=== PATIENT | female | born 1950 | race American Indian/Alaskan Native ===

== ENCOUNTER 2016-07-28 10:43 | Inpatient (IN) | payer MEDICARE ==
[2016-07-28 13:30] LABS: Basophils % (Auto) 0.8 % (0.0-1.8); Eosinophils % (Auto) 0.6 % (0.0-4.3); Mean Corpuscular HGB Conc 34 % (30-34); Mean Corpuscular Hemoglobin 30 pg (28-32); Mean Corpuscular Volume 88 fl (79-97); Platelet Count 265 K/mm3 (140-440); Red Blood Count 4.31 M/mm3 (3.65-5.03); Red Cell Distribution Width 15.1 % (13.2-15.2); White Blood Count 8.4 K/mm3 (4.5-11.0)
[2016-07-28 13:38] LABS: INR 0.95 (0.87-1.13)
[2016-07-28 13:39] LABS: Partial Thromboplastin Time 24.5 Sec. (24.2-36.6)
[2016-07-28 13:45] LABS: Creatine Kinase MB 1.1 ng/mL (0.0-4.0)
[2016-07-28 13:48] LABS: Alanine Aminotransferase 25 units/L (7-56); Albumin/Globulin Ratio 1.1 %; Alkaline Phosphatase 72 units/L (35-129); Anion Gap 23 mmol/L; BUN/Creatinine Ratio 21.66; Bilirubin,Total 0.8 mg/dL (0.1-1.2); Blood Urea Nitrogen 13 mg/dL (7-17); Carbon Dioxide 21 mmol/L (22-30); Chloride 103.6 mmol/L (98-107); Creatine Kinase 55 units/L (30-135); Glucose 113 mg/dL (65-100); Potassium 3.4 mmol/L (3.6-5.0); Sodium 144 mmol/L (137-145); Total Protein 7.5 g/dL (6.3-8.2)
--- NOTE | 2016-07-28 14:03 | Emergency Department Report ---
HPI - General Chief Complaint: Dizziness Time Seen by Provider: 07/28/16 12:44 - HPI HPI: Room 25 The patient is a 66-year-old female presenting with a chief complaint of dizziness and weakness. The patient states 6 days ago she developed dizziness, weakness, palpitations and shortness of breath whenever she moved about. The patient states 2 days ago she developed intermittent substernal chest pain that was dull in nature. Patient does admit to shortness of breath, nausea and diaphoresis but denies vomiting. The patient states chest pain is been intermittent and is not present currently. The patient states she has normal stress test in 2016 but is uncertain if she's ever had a cardiac catheterization Location: Chest, see above Duration: Intermittent 6 days Quality: Dull Severity: Currently 0/10 Modifying factors: [see above] Context: [see above] Mode of transportation: [not driving] ED Past Medical Hx - Past Medical History Hx Hypertension: Yes (x 10 years) Hx CVA: Yes Hx Heart Attack/AMI: Yes Hx GERD: Yes Hx Arthritis: Yes (uses cane and wheelchair) Hx Headaches / Migraines: Yes - Surgical History Past Surgical History?: Yes Additional Surgical History: Hysterectomy - Family History Family history: no significant - Social History Smoking Status: Never Smoker Substance Use Type: None - Medications Home Medications: Home Medications Medication Instructions Recorded Confirmed Last Taken Type Amlodipine Besylate [Amlodipine 5 mg PO DAILY 02/12/16 04/19/16 04/27/16 04:30 History Besylate] Diphenhydramine HCl [Benadryl GEL] 118 ml TP PRN PRN 02/12/16 04/19/16 Unknown History Fluticasone [Flonase] 2 spray NS QDAY 02/12/16 04/19/16 04/26/16 20:00 History Gabapentin [Gabapentin] 200 mg PO HS 02/12/16 04/19/16 04/26/16 20:00 History Gabapentin [Gabapentin] 300 mg PO QAM 02/12/16 04/19/16 04/27/16 04:30 History HYDROcodone/ACETAMINOPHEN 1 tab PO PRN PRN 02/12/16 04/19/16 04/27/16 04:30 History [Hydrocodon-Acetaminophen 5-325] Lisinopril/Hydrochlorothiazide 1 tab PO DAILY 02/12/16 04/19/16 04/27/16 04:30 History [Lisinopril-Hctz 20-25 mg Tab] Loratadine 10 mg PO DAILY 02/12/16 04/19/16 04/26/16 20:00 History Meloxicam [Meloxicam] 15 mg PO PRN PRN 02/12/16 04/27/16 04/25/16 History Omeprazole (Nf) [PriLOSEC (Nf)] 40 mg PO DAILY 02/12/16 04/27/16 2 Months Ago History Simvastatin [Zocor TAB] 40 mg PO QHS 02/12/16 04/19/16 04/26/16 20:00 History Sucralfate [Carafate] 1 gm PO ACHS 02/12/16 04/19/16 04/26/16 20:00 History Docusate Sodium [Colace] 100 mg PO BID PRN #60 capsule 04/28/16 Unknown Rx Ibuprofen [Motrin] 800 mg PO Q8HR PRN #30 tablet 04/28/16 Unknown Rx Oxycodone HCl/Acetaminophen 1 each PO Q6H PRN #40 tablet 04/28/16 Unknown Rx [Percocet 7.5/325 mg] ED Review of Systems ROS: Stated complaint: DIZZINESS/FATIGUE Other details as noted in HPI Comment: All other systems reviewed and negative Constitutional: weakness Eyes: denies: eye pain, eye discharge, vision change ENT: denies: ear pain, throat pain Respiratory: shortness of breath Cardiovascular: chest pain, palpitations Endocrine: no symptoms reported Gastrointestinal: nausea. denies: vomiting Genitourinary: denies: urgency, dysuria, discharge Musculoskeletal: denies: back pain, joint swelling, arthralgia Skin: denies: rash, lesions Neurological: denies: headache, weakness, paresthesias Psychiatric: denies: anxiety, depression Hematological/Lymphatic: denies: easy bleeding, easy bruising Physical Exam - Physical Exam Vital Signs: Vital Signs 07/28/16 07/28/16 07/28/16 10:52 11:00 11:01 Temperature 97.6 F Pulse Rate 52 L Respiratory 18 Rate Blood Pressure 138/51 157/52 Blood Pressure [Left] O2 Sat by Pulse 100 100 100 Oximetry 07/28/16 07/28/16 07/28/16 11:09 11:21 12:00 Temperature 97.6 F Pulse Rate 52 L 96 H Respiratory 18 16 40 H Rate Blood Pressure 125/77 Blood Pressure 157/52 [Left] O2 Sat by Pulse 100 100 100 Oximetry 07/28/16 13:00 Temperature Pulse Rate 97 H Respiratory 46 H Rate Blood Pressure 142/52 Blood Pressure [Left] O2 Sat by Pulse 100 Oximetry Physical Exam: GENERAL: The patient is well-developed well-nourished female lying on stretcher not appearing to be in acute distress. [] HEENT: Normocephalic. Atraumatic. Extraocular motions are intact. Patient has moist mucous membranes. NECK: Supple. No meningitic signs are noted. There is no adenopathy noted. CHEST/LUNGS: Clear to auscultation. There is no respiratory distress noted. HEART/CARDIOVASCULAR: Regular. There is no tachycardia. There is no gallop rub or murmur. ABDOMEN: Abdomen is soft, nontender. Patient has normal bowel sounds. There is no abdominal distention. SKIN: There is no rash. There is no edema. There is no diaphoresis. NEURO: The patient is awake, alert, and oriented. The patient is cooperative. The patient has no focal neurologic deficits. The patient has normal speech. Cranial nerves II through XII grossly intact, no drift MUSCULOSKELETAL: There is no evidence of acute injury. ED Course Vital Signs 07/28/16 07/28/16 07/28/16 10:52 11:00 11:01 Temperature 97.6 F Pulse Rate 52 L Respiratory 18 Rate Blood Pressure 138/51 157/52 Blood Pressure [Left] O2 Sat by Pulse 100 100 100 Oximetry 07/28/16 07/28/16 07/28/16 11:09 11:21 12:00 Temperature 97.6 F Pulse Rate 52 L 96 H Respiratory 18 16 40 H Rate Blood Pressure 125/77 Blood Pressure 157/52 [Left] O2 Sat by Pulse 100 100 100 Oximetry 07/28/16 13:00 Temperature Pulse Rate 97 H Respiratory 46 H Rate Blood Pressure 142/52 Blood Pressure [Left] O2 Sat by Pulse 100 Oximetry ED Medical Decision Making - Lab Data Result diagrams: 07/28/16 13:02 07/28/16 13:02 Laboratory Tests 07/28/16 07/28/16 07/28/16 13:02 13:02 13:02 WBC 8.4 RBC 4.31 Hgb 13.0 Hct 38.0 MCV 88 MCH 30 MCHC 34 RDW 15.1 Plt Count 265 Lymph % (Auto) 32.2 [place] % (Auto) 6.7 Eos % (Auto) 0.6 Baso % (Auto) 0.8 Lymph # 2.7 [place] # 0.6 Eos # 0.0 Baso # 0.1 Seg Neutrophils % 59.7 Seg Neutrophils # 5.0 PT 12.6 INR 0.95 APTT 24.5 Sodium 144 Potassium 3.4 L Chloride 103.6 Carbon Dioxide 21 L Anion Gap 23 BUN 13 Creatinine 0.6 L Estimated GFR > 60 BUN/Creatinine Ratio 21.66 Glucose 113 H Calcium 10.0 Total Bilirubin 0.8 AST 24 ALT 25 Alkaline Phosphatase 72 Total Creatine Kinase 55 CK-MB (CK-2) 1.1 CK-MB (CK-2) Rel Index 2.0 Troponin T < 0.010 Total Protein 7.5 Albumin 4.0 Albumin/Globulin Ratio 1.1 TSH Free T4 Blood Type Antibody Screen 07/28/16 07/28/16 13:02 13:02 WBC RBC Hgb Hct MCV MCH MCHC RDW Plt Count Lymph % (Auto) [place] % (Auto) Eos % (Auto) Baso % (Auto) Lymph # [place] # Eos # Baso # Seg Neutrophils % Seg Neutrophils # PT INR APTT Sodium Potassium Chloride Carbon Dioxide Anion Gap BUN Creatinine Estimated GFR BUN/Creatinine Ratio Glucose Calcium Total Bilirubin AST ALT Alkaline Phosphatase Total Creatine Kinase CK-MB (CK-2) CK-MB (CK-2) Rel Index Troponin T Total Protein Albumin Albumin/Globulin Ratio TSH 3.390 Free T4 1.20 Blood Type O POSITIVE Antibody Screen Negative - EKG Data -: EKG Interpreted by Me EKG shows normal: sinus rhythm Rate: normal - EKG Data When compared to previous EKG there are: previous EKG unavailable Interpretation: other (quadrigeminy) - Radiology Data Radiology results: image reviewed (chest x-ray) interpreted by me: Chest x-ray-no focal infiltrates, no pneumothorax - Differential Diagnosis ACS, dysrhythmia, chest pain Critical care attestation.: If time is entered above; I have spent that time in minutes in the direct care of this critically ill patient, excluding procedure time. ED Disposition Clinical Impression: Chest pain, Ventricular quadrigeminy Disposition: OP ADMITTED IP TO THIS HOSP Is pt being admited?: Yes Does the pt Need Aspirin: Yes Condition: Fair Instructions: Chest Pain (ED) Referrals: PRIMARY CARE, [Primary Care Provider] - 3-5 Days Time of Disposition: 14:04 (hospitalist paged)
[2016-07-28 14:04] LABS: Bilirubin,Urine NEG (Negative); Blood,Urine NEG (Negative); Ketones,Urine NEG (Negative); Leukocyte Esterase,Urine NEG (Negative); Mucus,Urine FEW /HPF; Nitrite,Urine NEG (Negative); Protein,Urine <15 mg/dL mg/dL (Negative); Urobilinogen,Urine < 2.0 mg/dL (<2.0); WBC,Urine < 1.0 /HPF (0.0-6.0)
[2016-07-28] MEDS ORDERED: ASPIRIN PO ONE (14:04)
--- NOTE | 2016-07-28 14:09 | XRay Report ---
AP CHEST: HISTORY: chest pain AP view of the chest demonstrates a normal mediastinal and cardiac contour with clear lungs and normal bony and soft tissue structures. IMPRESSION: Unremarkable AP chest.
[2016-07-28] MEDS ORDERED: ASPIRIN ONE (16:08)
[2016-07-28] MEDS ORDERED: MILK OF MAGNESIA PO PRN (18:34)
[2016-07-28] MEDS ORDERED: DILAUDID IV PRN (18:34)
[2016-07-28] MEDS ORDERED: DULCOLAX PR PRN (18:34)
[2016-07-28] MEDS ORDERED: TYLENOL PO PRN (18:34)
[2016-07-28] MEDS ORDERED: ZOFRAN IV PRN (18:34)
--- NOTE | 2016-07-28 18:34 | Event Note ---
Date: 07/28/16 See H/p in reports
[2016-07-28] MEDS ORDERED: SODIUM CHLORIDE FLUSH SYRINGE 10 ML IV PRN (18:37)
[2016-07-28] MEDS ORDERED: COLACE PO PRN (18:39)
[2016-07-28] MEDS ORDERED: OMEPRAZOLE 40 MG PO SCH (18:45)
[2016-07-28] MEDS ORDERED: D5/0.45NS 1,000 ML IV SCH (19:00)
[2016-07-28] MEDS: ZOCOR PO SCH (21:32)
[2016-07-28] MEDS: NEURONTIN PO SCH (21:33)
[2016-07-28] MEDS: PERCOCET 5/325 PO PRN (21:34)
[2016-07-28] MEDS: CARAFATE PO SCH (21:34)
[2016-07-28] MEDS: NORVASC PO SCH (21:35)
[2016-07-28 22:11] LABS: Creatine Kinase 48 units/L (30-135)
[2016-07-28 22:16] LABS: Creatine Kinase MB < 1.0 ng/mL (0.0-4.0)
--- NOTE | 2016-07-29 00:53 | Admit Criteria Form ---
Admission Criteria Documentation: CHEST PAIN Clinical Indications for Admission to Inpatient Care (Place 'X' for any and all applicable criteria): Admission is indicated for chest pain and ANY ONE of the following(1)(2)(3)(4)(5 ): [ ]I. Angina with acute coronary syndrome (Also use Myocardial Infarction or Angina guideline) [ ]II. Hemodynamic instability [ ]III. Angina needing acute intervention as indicated by ALL of the following( 11)(12): [ ]a) Unstable angina is present as indicated by angina that is ANY ONE of the following: [ ]i) New onset [ ]ii) Nocturnal [ ]iii) Prolonged at rest [ ]iv) Progressive [ ]b) Angina warrants acute intervention as indicated by ANY ONE of the following: [ ]i) Recurrent angina (e.g, not responding as previously to treatment) [ ]ii) Angina at rest or with low-level activities despite initial medical therapy [ ]iii) New or presumably new ST-segment depression on ECG [ ]iv) Signs or symptoms of heart failure (eg, dyspnea, pulmonary edema) [ ]v) New or worsening mitral regurgitation [ ]vi) Hemodynamic instability [ ]vii) Dangerous arrhythmia (eg, sustained ventricular tachycardia) [ ]viii) History of percutaneous coronary intervention within 6 months [ ]ix) History of coronary artery bypass graft surgery [ ]x) FERMIN risk score of 2 or greater[A] [ ]xi) History of Diabetes(14) [ ]xii) High-risk cardiac ischemia findings on noninvasive testing (e.g, echocardiogram, treadmill testing, nuclear scan) [ ]xiii) Chronic renal insufficiency (ie, estimated GFR less than 60 mL/min/1.732m) [ ]xiv) Left ventricular ejection fraction less than 40% [ ]IV. Evidence of ND (eg, cardiac biomarkers positive, ST-segment elevation on ECG) also use Myocardial Infarction Criteria Form. [ ]V. Pulmonary edema [ ]. Respiratory distress [ ]VII. Chest pain indicative of serious diagnosis other than coronary artery disease (eg, aortic dissection) [ ]VIII. Contraindications and/or Inappropriate clinical situations for Observational Care in patients with Chest Pain, when ANY ONE of the following is required: [ ]a) Patient with risk factor for pulmonary embolism, acute coronary syndrome and myocardial infarction (18) [ ]b) Patient with Pulmonary embolism require an average LOS of 4.3 days, therefore emergency department observation management is inappropriate 18,23 [ ]c) Painful condition/s in the elderly, have the highest rate of recidivism after emergency department observation management (10.8%) 20,21,22 [ ]d) Elevated cardiac biomarker requires intensive and exhaustive care (19) [X ]IX. General contraindications and/or Inappropriate clinical situations for Observational Care in patients with Chest Pain, when ANY ONE of the following is required: [X ]a) Prediction of prolongation of LOS based on ANY ONE of the following may be considered as a contraindication for observational care 2, 3, 4, 5, 6, 7, 8, 9, 10, 11 [X ]i) Age > 65 yrs. [ ]ii) Patient arriving by ambulance [ ]iii) Patient with high acuity [ ]iv) Patient requiring vital sign monitoring [X ]v) Patient on IV medication [ ]b) Systolic blood pressures 180mmHg 3,12 [ ]c) Patient with altered mental status including delirium and other alteration of consciousness, (3) [ ]d) Patient whose discharge disposition will be to a correction home or rehabilitation home should not be managed in Emergency Department Observation Unit. CMS rule requires 3 days hospital stay before such placement. 3,13 [ ]e) Patient with failure to thrive due to broad array of etiologies 3,16,17 [ ]f) Inability to ambulate 3,14 Extended stay beyond goal length of stay may be needed for (1)(28): [ ]a) Specific condition diagnosed after evaluation (eg, pulmonary embolism, aortic dissection) [ ]b) Unstable angina [ ]c) Continued suspicion of acute coronary syndrome with inability to complete needed cardiac evaluation (eg, patient clinically unable to undergo stress testing) [ ]d) Myocardial infarction (Contents from ANGINA and CHEST PAIN clinical indications for admission to inpatient care have been integrated in this form) The original [employer] content created by [employer] has been revised. The portions of the content which have been revised are identified through the use of italic text or in bold, and [facility] [facility] [employer] has neither reviewed nor approved the modified material. All other unmodified content is copyright [employer]. Please see references footnoted in the original [facility] edition 2016 Admission Criteria Met: Yes
[2016-07-29 01:12] LABS: Creatine Kinase 44 units/L (30-135)
[2016-07-29 01:15] LABS: Creatine Kinase MB < 1.0 ng/mL (0.0-4.0)
[2016-07-29 07:45] LABS: Basophils % (Auto) 0.9 % (0.0-1.8); Eosinophils % (Auto) 1.3 % (0.0-4.3); Hematocrit 33.5 % (30.3-42.9); Hemoglobin 11.5 gm/dl (10.1-14.3); Mean Corpuscular HGB Conc 34 % (30-34); Mean Corpuscular Hemoglobin 31 pg (28-32); Mean Corpuscular Volume 89 fl (79-97); Platelet Count 228 K/mm3 (140-440); Red Blood Count 3.77 M/mm3 (3.65-5.03); Red Cell Distribution Width 15.4 % (13.2-15.2); White Blood Count 7.9 K/mm3 (4.5-11.0)
[2016-07-29 07:57] LABS: Alanine Aminotransferase 23 units/L (7-56); Albumin 3.5 g/dL (3.9-5); Albumin/Globulin Ratio 1.1 %; Alkaline Phosphatase 60 units/L (35-129); Anion Gap 16 mmol/L; Bilirubin,Total 0.9 mg/dL (0.1-1.2); Blood Urea Nitrogen 20 mg/dL (7-17); Calcium 9.1 mg/dL (8.4-10.2); Carbon Dioxide 25 mmol/L (22-30); Chloride 104.3 mmol/L (98-107); Glucose 130 mg/dL (65-100); Potassium 3.7 mmol/L (3.6-5.0); Sodium 142 mmol/L (137-145); Total Protein 6.8 g/dL (6.3-8.2)
[2016-07-29] MEDS: CARAFATE PO SCH ×4 (08:28→21:24)
[2016-07-29] MEDS ORDERED: CLARITIN PO SCH (10:00)
[2016-07-29] MEDS ORDERED: HYDROCHLOROTHIAZIDE PO SCH (10:00)
[2016-07-29] MEDS ORDERED: LISINOPRIL PO SCH (10:00)
[2016-07-29] MEDS: PERCOCET 5/325 PO PRN ×2 (10:16→21:26)
[2016-07-29] MEDS: CLARITIN PO SCH (10:17)
[2016-07-29] MEDS: ECOTRIN PO SCH (10:17)
[2016-07-29] MEDS: NORVASC PO SCH (10:17)
[2016-07-29] MEDS: PROTONIX PO SCH (10:17)
[2016-07-29] MEDS: HCTZ PO SCH (10:17)
[2016-07-29] MEDS: NEURONTIN PO SCH ×2 (10:18→21:24)
[2016-07-29] MEDS: ZESTRIL PO SCH (10:18)
[2016-07-29] MEDS: FLONASE NS SCH (10:18)
--- NOTE | 2016-07-29 10:22 | History and Physical Report ---
CHIEF COMPLAINT: Dizziness and chest pain. HISTORY OF PRESENT ILLNESS: A 66-year-old female presents with dizziness and weakness. Does have dizziness, weakness, palpitations, and shortness of breath for 2 days. Also, intermittent chest pain. Pain is about a 6 on a scale of 1-10. Associated with nausea and diaphoresis, but denies vomiting. Pain is about 6 on a scale of 1-10. PAST MEDICAL HISTORY: Significant for cerebrovascular accident, hypertension, gastroesophageal reflux disease, migraines, headaches, arthritis. PAST SURGICAL HISTORY: Hysterectomy. FAMILY HISTORY: No significant family history. SOCIAL HISTORY: Does not smoke. No alcohol, no recreational drugs. CURRENT MEDICATIONS: On the chart. REVIEW OF SYSTEMS: Significant for nausea, chest pain, palpitations, and shortness of breath. Otherwise, 14-point review of systems essentially negative. All systems reviewed. PHYSICAL EXAMINATION: GENERAL: Elderly female, cooperative during examination. VITAL SIGNS: Blood pressure 157/52, temperature is 97.6, pulse is 52, respirations are 18. HEENT: Unremarkable. Pupils equal and reactive. NECK: Supple, no lymphadenopathy, no thyromegaly. LUNGS: Clear to auscultation and percussion. Good air entry. CARDIOVASCULAR: S1, S2 heard. No gallop, no murmur, no rub. Apical impulse in left fifth intercostal space and midclavicular line. ABDOMEN: Soft and benign. No hepatosplenomegaly. No guarding, no rigidity. Hernial orifices are normal. EXTREMITIES: Good pedal pulses. No pedal edema. CENTRAL NERVOUS SYSTEM: Alert and oriented x 4, nonfocal exam. LABORATORY DATA: Significant for low potassium of 3.4 and bicarbonate of 21. DIAGNOSTIC DATA: EKG shows quadrigeminy. Chest x-ray shows no focal infiltrates. ASSESSMENT AND PLAN: 1. Ventricular quadrigeminy. We will defer to Cardiology. [facility] consulted. Dr. Cueva consulted. 2. Congestive heart failure. Continue Lasix. 3. Hyperlipidemia. Continue simvastatin. 4. Hypertension. Continue lisinopril 40 mg p.o. daily. JOB# [id number] M/NTS
[2016-07-29] MEDS ORDERED: CITRATE OF MAGNESIA PO PRN (11:00)
--- NOTE | 2016-07-29 11:04 | Echocardiography Report ---
Transthoracic Echocardiogram Indication: CHF BP: 115/59 HR: 90 Conclusions *Global left ventricular systolic function is at the lower limits of normal. *The estimated ejection fraction is 45-50%. *The mid anteroseptal, mid inferoseptal, and apical septal wall segments are hypokinetic. *The aortic valve is trileaflet. The leaflets are thin with normal excursion. There is no aortic stenosis or regurgitation present. *There is trace of mitral regurgitation. *There is trace pulmonic regurgitation. *There is mild tricuspid regurgitation. Findings Procedure Info: The study quality is fair. Left Ventricle: The left ventricular chamber size is normal. Global left ventricular systolic function is at the lower limits of normal. The estimated ejection fraction is 45-50%. The mid anteroseptal, mid inferoseptal, and apical septal wall segments are hypokinetic. Left Atrium: The left atrial chamber size is normal. Right Ventricle: The right ventricular cavity size is normal. The right ventricular global systolic function is normal. Right Atrium: The right atrial cavity size is normal. Aortic Valve: The aortic valve is trileaflet. The leaflets are thin with normal excursion. There is no aortic stenosis or regurgitation present. The aortic valve is trileaflet. Mitral Valve: There is trace of mitral regurgitation. There is no evidence of mitral stenosis. Tricuspid Valve: There is mild tricuspid regurgitation. No pulmonary hypertension is noted. Pulmonic Valve: The pulmonic valve is not well visualized. There is trace pulmonic regurgitation. There is no pulmonic stenosis. Pericardium: There is no pericardial effusion. No pleural effusion is present. Measurements Chambers 2D Name Value Normal Range IVSd (2D) 0.94 cm (0.6 - 1.1) LVPWd 1.1 cm - LVPWd (2D) 1.14 cm (0.6 - 1.1) IVS:LVPW ratio (2D) 0.82 ratio - LVIDd 3.9 cm - LVIDs 3.2 cm - LVIDd (2D) 3.92 cm (3.7 - 5.6) LVIDs (2D) 3.15 cm (2 - 3.8) LV FS (Teichholz) (2D) 19.6 % - LV FS (cube) (2D) 19.6 % - LV EF (2D) 41 % - EF Teichholz (2D) 40.9 % - LA dimension 3.1 cm - Ao root diameter (2D) 2.6 cm (2 - 3.7) LA dimension (AP) 2D 3.1 cm (1.9 - 4) LA:Ao ratio (2D) 1.19 ratio - Volumes/Mass Name Value Normal Range LA ESV SP 4CH (MOD) 21 ml - LV EDV SP 4CH (MOD) 114 ml - LV ESV SP 4CH (MOD) 63 ml - EF SP 4CH (MOD) 45 % - Diastolic/Systolic Function Name Value Normal Range MV E-wave Vmax 0.47 m/sec - MV deceleration time 198 msec - MV A-wave Vmax 0.76 m/sec - MV E:A ratio 0.6 ratio - LV septal e' Vmax 0.09 m/sec - LV lateral e' Vmax 0.06 m/sec - LV E:e' septal ratio 5.3 ratio - LV E:e' lateral ratio 7.9 ratio - Aortic Valve Name Value Normal Range AV Vmax 1.32 m/sec - AV peak gradient 7 mmHg - LVOT diameter 2.2 cm - LVOT Vmax 0.72 m/sec - LVOT peak gradient 2 mmHg - JOVITA (continuity Vmax) 2.06 cm2 - Tricuspid Valve Name Value Normal Range TR Vmax 2.46 m/sec - TR peak gradient 24 mmHg - Pulmonic Valve/Qp:Qs Name Value Normal Range PV Vmax 0.73 m/sec - PV peak gradient 2 mmHg - OH end-diastolic Vmax 1.27 m/sec - PV acceleration time 79 msec - [place] BAS Not Seen BA Not Seen BAL Not Seen CARA Not Seen BI Not Seen BIS Not Seen MAS Hypokinetic MA Not Seen MAL Not Seen MIL Not Seen ME Not Seen MIS Hypokinetic Hypokinetic AA Not Seen AL Not Seen AI Not Seen APEX Not Seen
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
[2016-07-29] MEDS: LOPRESSOR PO SCH ×2 (15:21→21:27)
--- NOTE | 2016-07-29 17:06 | Progress Note ---
Assessment and Plan Assessment and plan: Chest Pain - resolved - Cardiac enzymes are negative - ECG normal sinus rhythm with PVCs - cardiology consult appreciated HTN - on lisinopril, HCTZ and metoprolol Hyperlipidemia - On simvastatin Prophylaxis -on lovenox Disposition - Possible D/C tomorrow History Interval history: Patient was seen and evaluated in the morning, chest pain resolved. She complains abdominal cramping likely from constipation. Hospitalist Physical - Physical exam Narrative exam: Not in cardiopulmonary distress. The patient appeared well nourished and normally developed. Vital signs as documented. Head exam is unremarkable. No scleral icterus . Neck is without jugular venous distension, thyromegaly, or carotid bruits. Lungs are clear to auscultation. Cardiac exam reveals regular rate and Rhythm. First and second heart sounds normal. No murmurs, rubs or gallops. Abdominal exam reveals normal bowel sounds, no masses, no organomegaly and no aortic enlargement. Extremities are nonedematous and both femoral and pedal pulses are normal. TELECOM SALES CONSULTANT: Alert and oriented 3. No focal weakness. - Constitutional Vitals: Temp Pulse Resp BP Pulse Ox 98.5 F 86 20 130/68 99 07/29/16 12:28 07/29/16 12:28 07/29/16 12:28 07/29/16 12:28 07/29/16 12:28 General appearance: Present: no acute distress, obese Results - Labs CBC & Chem 7: 07/29/16 07:08 07/29/16 07:08 Labs: Laboratory Last Values WBC 7.9 K/mm3 (4.5-11.0) 07/29/16 07:08 RBC 3.77 M/mm3 (3.65-5.03) 07/29/16 07:08 Hgb 11.5 gm/dl (10.1-14.3) 07/29/16 07:08 Hct 33.5 % (30.3-42.9) 07/29/16 07:08 MCV 89 fl (79-97) 07/29/16 07:08 MCH 31 pg (28-32) 07/29/16 07:08 MCHC 34 % (30-34) 07/29/16 07:08 RDW 15.4 % (13.2-15.2) H 07/29/16 07:08 Plt Count 228 K/mm3 (140-440) 07/29/16 07:08 Lymph % (Auto) 35.5 % (13.4-35.0) H 07/29/16 07:08 Ashley % (Auto) 8.9 % (0.0-7.3) H 07/29/16 07:08 Eos % (Auto) 1.3 % (0.0-4.3) 07/29/16 07:08 Baso % (Auto) 0.9 % (0.0-1.8) 07/29/16 07:08 Lymph # 2.8 K/mm3 (1.2-5.4) 07/29/16 07:08 Ashley # 0.7 K/mm3 (0.0-0.8) 07/29/16 07:08 Eos # 0.1 K/mm3 (0.0-0.4) 07/29/16 07:08 Baso # 0.1 K/mm3 (0.0-0.1) 07/29/16 07:08 Seg Neutrophils % 53.4 % (40.0-70.0) 07/29/16 07:08 Seg Neutrophils # 4.2 K/mm3 (1.8-7.7) 07/29/16 07:08 PT 12.6 Sec. (12.2-14.9) 07/28/16 13:02 INR 0.95 (0.87-1.13) 07/28/16 13:02 APTT 24.5 Sec. (24.2-36.6) 07/28/16 13:02 Sodium 142 mmol/L (137-145) 07/29/16 07:08 Potassium 3.7 mmol/L (3.6-5.0) 07/29/16 07:08 Chloride 104.3 mmol/L (98-107) 07/29/16 07:08 Carbon Dioxide 25 mmol/L (22-30) 07/29/16 07:08 Anion Gap 16 mmol/L 07/29/16 07:08 BUN 20 mg/dL (7-17) H 07/29/16 07:08 Creatinine 1.0 mg/dL (0.7-1.2) D 07/29/16 07:08 Estimated GFR > 60 ml/min 07/29/16 07:08 BUN/Creatinine Ratio 20.00 % 07/29/16 07:08 Glucose 130 mg/dL (65-100) H 07/29/16 07:08 Calcium 9.1 mg/dL (8.4-10.2) 07/29/16 07:08 Total Bilirubin 0.9 mg/dL (0.1-1.2) 07/29/16 07:08 AST 21 units/L (5-40) 07/29/16 07:08 ALT 23 units/L (7-56) 07/29/16 07:08 Alkaline Phosphatase 60 units/L (35-129) 07/29/16 07:08 Total Creatine Kinase 44 units/L (30-135) 07/29/16 00:25 CK-MB (CK-2) < 1.0 ng/mL (0.0-4.0) 07/29/16 00:25 CK-MB (CK-2) Rel Index 2.2 (0-4) 07/29/16 00:25 Troponin T < 0.010 ng/mL (0.00-0.029) 07/29/16 00:25 Total Protein 6.8 g/dL (6.3-8.2) 07/29/16 07:08 Albumin 3.5 g/dL (3.9-5) L 07/29/16 07:08 Albumin/Globulin Ratio 1.1 % 07/29/16 07:08 TSH 3.390 mlU/mL (0.270-4.200) 07/28/16 13:02 Free T4 1.20 ng/dL (0.76-1.46) 07/28/16 13:02 Urine Color Yellow (Yellow) 07/28/16 13:21 Urine Turbidity Clear (Clear) 07/28/16 13:21 Urine pH 8.0 (5.0-7.0) H 07/28/16 13:21 Ur Specific [place] 1.013 (1.003-1.030) 07/28/16 13:21 Urine Protein <15 mg/dl mg/dL (Negative) 07/28/16 13:21 Urine Glucose (UA) Neg mg/dL (Negative) 07/28/16 13:21 Urine Ketones Neg mg/dL (Negative) 07/28/16 13:21 Urine Blood Neg (Negative) 07/28/16 13:21 Urine Nitrite Neg (Negative) 07/28/16 13:21 Urine Bilirubin Neg (Negative) 07/28/16 13:21 Urine Urobilinogen < 2.0 mg/dL (<2.0) 07/28/16 13:21 Ur Leukocyte Esterase Neg (Negative) 07/28/16 13:21 Urine WBC (Auto) < 1.0 /HPF (0.0-6.0) 07/28/16 13:21 Urine RBC (Auto) 1.0 /HPF (0.0-6.0) 07/28/16 13:21 U Epithel Cells (Auto) 1.0 /HPF (0-13.0) 07/28/16 13:21 Hyaline Casts 1 /LPF 07/28/16 13:21 Urine Mucus Few /HPF 07/28/16 13:21 Blood Type O POSITIVE 07/28/16 13:02 Antibody Screen Negative 07/28/16 13:02
[2016-07-29] MEDS: ZOCOR PO SCH (21:25)
[2016-07-30] MEDS: PERCOCET 5/325 PO PRN (08:35)
[2016-07-30] MEDS: CARAFATE PO SCH ×2 (08:36→11:18)
[2016-07-30] MEDS: ZESTRIL PO SCH (11:16)
[2016-07-30] MEDS: PROTONIX PO SCH (11:16)
[2016-07-30] MEDS: NEURONTIN PO SCH (11:16)
[2016-07-30] MEDS: LOPRESSOR PO SCH (11:16)
[2016-07-30] MEDS: ECOTRIN PO SCH (11:17)
[2016-07-30] MEDS: HCTZ PO SCH (11:17)
[2016-07-30] MEDS: FLONASE NS SCH (11:17)
[2016-07-30] MEDS: CLARITIN PO SCH (11:17)
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
--- NOTE | 2016-07-30 11:31 | Progress Note ---
Assessment and Plan Chest pain atypical Palpitations Hypertension Hyperlipidemia Recommend in view of negative cardiac enzymes negative recent stress test atypical chest pain patient may be discharged from cardiovascular Subjective Date of service: 07/30/16 Principal diagnosis: palpations and chest pain Interval history: Patient's resting in the bed has no more chest pain or palpitations Objective Vital Signs Temp Pulse Pulse Pulse Resp BP BP 07/30/16 08:00 97.9 F 92 H 20 128/60 07/30/16 06:22 75 07/30/16 05:55 98.2 F 86 19 117/56 07/30/16 00:00 98.1 F 75 22 127/63 07/29/16 21:27 83 101/50 07/29/16 20:00 98.3 F 83 21 101/48 07/29/16 19:00 82 07/29/16 17:45 98.7 F 80 20 99/54 07/29/16 12:28 98.5 F 86 20 130/68 Pulse Ox 07/30/16 08:00 98 07/30/16 06:22 07/30/16 05:55 95 07/30/16 00:00 98 07/29/16 21:27 07/29/16 20:00 98 07/29/16 19:00 07/29/16 17:45 98 07/29/16 12:28 99 - Physical Examination General: Appears Well, No Apparent Distress HEENT: Positive: PERRL Neck: Positive: neck supple Cardiac: Positive: Reg Rate and Rhythm Lungs: Positive: clear to auscultation Neuro: Positive: Grossly Intact Abdomen: Positive: Soft, Active Bowel Sounds /Rectal: Normal Prostate, No Masses Skin: Musculoskeletal: No Fluid Collection, No Pain, Normal Range of Motion Gait: Normal Gait Extremities: Present: normal - Imaging and Cardiology EKG: report reviewed Pharmacologic stress test: report reviewed (February 2016 normal myocardial perfusion scan no ischemia noted) Echo: report reviewed (EF 45% with no significant regurgitation) - Telemetry EKG Rhythm: Sinus Rhythm (occasional PVCs normal sinus rhythm) - EKG Ventricular dysrhythmias: ventricular premature com
[2016-07-30 14:38] VITALS: BP 126/98
--- NOTE | 2016-08-02 11:29 | Query- Chest Pain ---
Bonnie Ruiz____Adriana Date:___08/02/16 Advertising Production Manager/CDS:___Efrain / Yanivcynthiaesdras Phone#:___[phone] Exercise your independent professional judgment when responding to query. Questions asked do not imply a particular answer is desired or expected. We greatly appreciate your clarification on this issue. Clinical Documentation States: 68 year old female was admitted on 07/28/16. The discharge summary states " Chest pain : Acute " The progress note (07/30/16) dictates " Chest pain atypical, palpitations. Recommend in view of negative cardiac enzymes negative stress test atypical chest pain patient may be discharged from cardiovascular " Clinical Findings Show: Echo: EF 45-50%, Global left ventricular systolic function is at the lower limits of normal Please document the etiology of Chest Pain: [ ] Myocardial Infarction [ ] Pneumonia [ ] Mediastinitis [ ] Costochondritis [ ] Pulmonary Embolism [ ] Coronary Artery Disease [ x] GERD [ ] Other: [ ] Comment/Explanation: [ ] Not applicable Present on Admission: [ ] Yes (Y) [x ] Clinically undeterminable (W) [ ] No(N) Please document response in your Progress Notes and/or Discharge Summary and indicate if the condition was present on admission. LATESHA
== END 2016-07-30 15:00 | disposition home or self-care (01) | DRG 392 ==
LOC: ED 10:43 → 4A 14:25
PROVIDERS: ADMIT Internal Medicine; ATTEND Internal Medicine
DX: K21.9 Gastro-esophageal reflux disease without esophagitis (principal); I49.3 Ventricular premature depolarization; I50.9 Heart failure, unspecified; G43.909 Migraine, unspecified, not intractable, without status migrainosus; M19.90 Unspecified osteoarthritis, unspecified site; E78.5 Hyperlipidemia, unspecified; R07.89 Other chest pain; I10 Essential (primary) hypertension; Z86.73 Personal history of transient ischemic attack (TIA), and cerebral infarction without residual deficits; Z90.710 Acquired absence of both cervix and uterus; Z79.899 Other long term (current) drug therapy; Z82.49 Family history of ischemic heart disease and other diseases of the circulatory system; Z99.3 Dependence on wheelchair
CPT/HCPCS: 36415; 71010; 80053; 81001; 82550; 82553; 82962; 84439; 84443; 84484; 85025; 85610; 85730; 86850; 86900; 86901; 93005; 93010; 93306